=== PATIENT | female | born 1985 | race Caucasian/White ===

== ENCOUNTER 2021-10-06 12:53 | Outpatient (CLI) | payer OTHER, SELFPAY ==
--- NOTE | ~2021-10-06 | US_ITS ---
EXAMINATION: US pelvic complete w TV EXAM DATE: 10/06/2021 13:37 INDICATION: Other intra abd and pel swelling, mass and lump . TECHNIQUE: Pelvic transabdominal and transvaginal sonogram was performed. There are multiple graysca le and Doppler images available for interpretation. Comparison is made to prior examination from 07/12. FINDINGS: Uterus measures 6.6 x 4.1 x 3.3 cm, with an anterior fibroid measuring 1.5 cm. Endometrial stripe measures 2 mm, within normal limits. There are nabothian cysts. There is no free pelvic flu id. Right adnexa: The ovary measures 3.4 x 1.7 x 1.8 cm and is morphologically normal. Ovarian vascular f low confirmed. Left adnexa: The ovary measures 5.3 x 4.2 x 2.7 cm, mildly enlarged with diffusely heterogeneous appe arance, and regions of shadowing which could be calcification. Overall appearance indicates possibili ty of mass, such as teratoma. This was not evident in 2014. Ovarian vascular flow confirmed. IMPRESSION: 1. Mildly enlarged, heterogeneous left ovary, possibly from teratoma or other histology. Consider 6 week follow-up and if this persists MR of the pelvis without and with contrast. 2. Fibroid. Reviewed, dictated and finalized at location A. VERY STOCK CLERK IMPRESSION: 1. Mildly enlarged, heterogeneous left ovary, possibly from teratoma or other histology. Consider 6 week follow-up and if this persists MR of the pelvis with out and with contrast. 2. Fibroid.
== END 2021-10-06 12:54 | disposition home or self-care (01) ==
LOC: ANHIMG 13:01
PROVIDERS: Visit Provider Nurse Practitioner
DX: R19.09 Other intra-abdominal and pelvic swelling, mass and lump (principal); D25.9 Leiomyoma of uterus, unspecified
CPT/HCPCS: 76830; 76856

== ENCOUNTER 2021-11-17 10:06 | Outpatient (CLI) | payer OTHER, SELFPAY ==
--- NOTE | ~2021-11-17 | US_ITS ---
EXAMINATION: US pelvic complete w TV DATE: 11/17/2021 10:48 INDICATION: Enlarged left ovary. TECHNIQUE: Multiple transabdominal and transvaginal sonographic images of the pelvis were obtained. COMPARISON: Pelvis ultrasound 10/06/2021, 08/06/2015 FINDINGS: TRANSABDOMINAL ULTRASOUND: The uterus measures 7.2 x 2.8 x 4.4 cm. There is no free fluid in the pelvis. TRANSVAGINAL ULTRASOUND: The endometrial complex measures 4 mm in thickness. There is a 2.5 cm subserosal fibroid. The right o vary measures 3.2 x 1.4 x 1.4. There is a 6.2 x 2.5 x 4.7 cm left adnexal mass. IMPRESSION: 1. 6.2 cm left adnexal mass. The differential diagnosis includes pedunculated uterine fibroid and karthik ign or less likely malignant ovarian mass. Pelvis MRI without and with contrast is recommended. Reviewed, dictated and finalized at location E. LE APPLICATION TESTER IMPRESSION: 1. 6.2 cm left adnexal mass. The differential diagnosis includes pedunculated u terine fibroid and benign or less likely malignant ovarian mass. Pelvis MRI wit hout and with contrast is recommended.
== END 2021-11-17 10:07 | disposition home or self-care (01) ==
LOC: ANHIMG 10:11
PROVIDERS: Visit Provider Obstetrics & Gynecology Gynecology
DX: R93.5 Abnormal findings on diagnostic imaging of other abdominal regions, including retroperitoneum (principal); R19.09 Other intra-abdominal and pelvic swelling, mass and lump
CPT/HCPCS: 76830; 76856

== ENCOUNTER 2021-12-01 08:49 | Outpatient (CLI) | payer OTHER, SELFPAY ==
--- NOTE | ~2021-12-01 | MR_ITS ---
EXAMINATION: MR pelvis wo/w con DATE: 12/01/2021 10:33 INDICATION: Left adnexal mass TECHNIQUE: Magnetic resonance imaging (MRI) of the pelvis was performed without and with 12 mL Multih ance intravenous contrast. Full-field sequences of the pelvis included axial and coronal T2-weighted SS FSE, coronal 2D FIESTA, axial T1-weighted FSPGR, axial dual-echo T1-weighted FSPGR and axial T1 we ighted LAVA. Small field of view sequences included axial, sagittal and coronal T2-weighted FSE cent ered on the uterus and adnexa. Postcontrast sequences included a time course axial T1-weighted LAVA with full-field of view of the pelvis. COMPARISON: Pelvic ultrasound dated 11/27/2021 FINDINGS: Bladder is normal. 1.9 x 1.8 x 1.4 cm cluster of subcentimeter T2 hyperintense cysts with multiple en hancing septations at the cervix. Uterus is normal. Approximately 7 subcentimeter T2 hyperintense cys ts/follicles in the 3.6 x 1.4 x 1.6 cm right ovary. 6.1 x 4.2 x 4.6 cm T1 isointense, T2 very hypoint ense and enhancing left adnexal mass with lobular margins. This appears separate from the left ovary which measures 2.6 x 2.4 x 1.1 cm which is located along the posterior margin of the left external il iac vein. The larger enhancing mass abuts the uterus with no discernible intervening fat plane on opp osed phase imaging suggesting this may represent a large pedunculated fibroid. Visualized portions of the bowels including the appendix are unremarkable. No free fluid in the pelvis. No pathologically e nlarged pelvic or inguinal lymphadenopathy. Mild disc desiccation and small disc bulge resulting in m ild central canal stenosis at L4-L5. Normal bone marrow signal throughout. IMPRESSION: 1. 1.9 cm multiloculated cystic lesion with enhancing septations at the cervix. Differential would in clude benign lesion such as endocervical hyperplasia, cystic endocervical tunnel cluster and cystic e ndocervical polyp or malignancy such as adenoma malignum. 2. 6.1 x 4.2 x 4.6 cm enhancing mass with lobular margins in the left adnexal region. This however ap pears separate from the normal-appearing left ovary and contiguous with the lower uterine segment/cervix which could represent a large peduncu lated uterine fibroid or exophytic solid component of the previous noted cystic cervical lesion with differential including cervical cancer. Reviewed, dictated and finalized at location A. BILITATION INSPECTOR IMPRESSION: 1. 1.9 cm multiloculated cystic lesion with enhancing septations at the cervix. Differential would include benign lesion such as endocervical hyperplasia, cys tic endocervical tunnel cluster and cystic endocervical polyp or malignancy suc h as adenoma malignum. 2. 6.1 x 4.2 x 4.6 cm enhancing mass with lobular margins in the left adnexal r egion. This however appears separate from the normal-appearing left ovary and contiguous with the lower uterine segment/cervix which could rep resent a large pedunculated uterine fibroid or exophytic solid component of the previous noted cystic cervical lesion with differential including cervical can cer.
[2021-12-01 09:41] LABS: Estimated Glomerular Filt Rate > 60
== END 2021-12-01 08:50 | disposition home or self-care (01) ==
LOC: ANHIMG 08:52
PROVIDERS: Visit Provider Obstetrics & Gynecology Gynecology
DX: N88.9 Noninflammatory disorder of cervix uteri, unspecified (principal); R19.09 Other intra-abdominal and pelvic swelling, mass and lump
CPT/HCPCS: 72197; A9577